=== PATIENT | female | born 1995 | race Caucasian/White ===

== ENCOUNTER 2020-06-15 13:04 | Emergency (ER) | payer OTHER ==
[~2020-06-15] VITALS: Ht 160 cm; Wt 65.5 kg
[2020-06-15 13:05] VITALS: BP 131/79
== END 2020-06-15 14:11 | disposition home or self-care (01) ==
LOC: M ED 13:04
DX: F41.9 Anxiety disorder, unspecified (principal); Z3A.15 15 weeks gestation of pregnancy

== ENCOUNTER → 2020-09-22 | Outpatient (REF) | payer OTHER ==
[2020-09-22 13:45] LABS: HEMATOCRIT 34.1 % (36.0-47.0); HEMOGLOBIN 10.9 g/dl (12.0-15.5); MEAN CORPUSCULAR HEMOGLOBIN 30.1 pg (27.0-33.0); MEAN CORPUSCULAR VOLUME 94.2 fl (80.0-96.0); PLATELET COUNT, AUTOMATED 239 10^3/uL (150-450); RED BLOOD COUNT 3.62 10^6/uL (4.00-5.40); WHITE BLOOD COUNT 11.1 10^3/uL (4.0-10.0)
[2020-09-22 14:14] LABS: GLUCOSE CHALLENGE TEST 1 HOUR 96 MG/DL (LESS THAN 140)
[2020-09-22 15:10] LABS: HEPATITIS C VIRUS ABY INDEX 0.1 INDEX (<0.8); HIV 1&2 SCREEN CENTAUR NEGATIVE (NEGATIVE)
[2020-09-22 15:38] LABS: CHLAMYDIA DNA AMPLIFICATION NEGATIVE (NEGATIVE); GC DNA AMPLIFICATION NEGATIVE (NEGATIVE)
== END ==
LOC: M PLALAB 10:27
PROVIDERS: ATTEND Obstetrics & Gynecology
DX: Z34.93 Encounter for supervision of normal pregnancy, unspecified, third trimester (principal); Z36.89 Encounter for other specified antenatal screening

== ENCOUNTER → 2020-10-06 | Outpatient (REF) | payer OTHER | LOC: M PLALAB 00:46 | PROVIDERS: ATTEND Obstetrics & Gynecology | DX: Z3A.31 31 weeks gestation of pregnancy (principal); Z53.9 Procedure and treatment not carried out, unspecified reason ==

== ENCOUNTER → 2020-10-08 | Outpatient (REF) | payer OTHER ==
[~2020-10-08] MED LIST: MULTTAB20 PO
== END ==
LOC: M SFHCWAGY 13:10
PROVIDERS: ATTEND Obstetrics & Gynecology
DX: Z34.93 Encounter for supervision of normal pregnancy, unspecified, third trimester (principal); Z3A.31 31 weeks gestation of pregnancy
CPT/HCPCS: 87086; G0463

== ENCOUNTER → 2020-11-04 | Outpatient (REF) | payer OTHER | LOC: M PLALAB 16:34 | PROVIDERS: ATTEND Obstetrics & Gynecology | DX: Z36.89 Encounter for other specified antenatal screening (principal); Z3A.36 36 weeks gestation of pregnancy ==

== ENCOUNTER 2020-11-05 08:57 | Outpatient (CLI) | payer OTHER ==
[~2020-11-05] VITALS: Ht 162.6 cm; Wt 81.5 kg
[2020-11-05 09:20] VITALS: BP 124/77
[2020-11-05] MEDS ORDERED: MULTTAB20 PO (09:23)
[2020-11-05 10:23] LABS: HEMATOCRIT 33.3 % (36.0-47.0); HEMOGLOBIN 10.9 g/dl (12.0-15.5); MEAN CORPUSCULAR HEMOGLOBIN 30.3 pg (27.0-33.0); MEAN CORPUSCULAR HGB CONC 32.7 g/dl (32.0-36.5); MEAN CORPUSCULAR VOLUME 92.5 fl (80.0-96.0); PLATELET COUNT, AUTOMATED 218 10^3/uL (150-450); WHITE BLOOD COUNT 10.8 10^3/uL (4.0-10.0)
[2020-11-05 10:52] LABS: CREATININE,RANDOM URINE 41.2 MG/DL; TOTAL PROTEIN,RANDOM URINE 13.3 MG/DL (0.0-12.0)
[2020-11-05 10:52] LABS: ALT/SGPT 14 U/L (12-78); BILIRUBIN,TOTAL 0.1 MG/DL (0.2-1.0); CREATININE FOR GFR 0.44 MG/DL (0.55-1.30); GLOMERULAR FILTRATION RATE > 60.0 (>60); LDH LACTATE DEHYDROGENASE 152 U/L (84-246); URIC ACID 2.4 MG/DL (2.6-6.0)
[2020-11-05 11:39] VITALS: BP 128/75
--- NOTE | 2020-11-05 12:20 | REP ---
INDICATION: RUQ pain. COMPARISON: None. TECHNIQUE: Standard right upper quadrant sonography performed. Patient is 35 weeks . Exam somewhat limited due to bowel gas. FINDINGS: Liver is homogeneous in echotexture without gross mass, intrahepatic biliary dilatation nor adjacent ascites. Gallbladder shows no abnormal wall thickening, stone or sludge. No pericholecystic fluid. Common duct is 2.4 mm without a common duct stone. There is no sonographic Ridley sign. Pancreas is completely obscured by gas shadowing. The right kidney is 12.3 x 5.6 x 5.7 cm. Some mild right hydronephrosis, most likely hydronephrosis of . No visible stone or shadowing from echogenic focus. No definite perinephric fluid. IMPRESSION: Negative evaluation of the liver, gallbladder and common bile duct. No stone, sludge, wall thickening or pericholecystic fluid. Common duct 2.4 mm and normal. Pancreas completely obscured. Mild hydronephrosis right kidney 12.3 x 5.6 x 5.7 cm, likely hydronephrosis of . Exam limited by gas shadowing and late 3rd trimester . There is a known atypical, uncommon presentation for preeclampsia manifested as right upper quadrant pain. This would be your clinical exclusion. <Electronically signed by Parish Lopez > 11/05/20 [id number]
[2020-11-05 12:39] LABS: APPEARANCE, URINE CLOUDY (CLEAR); BACTERIA, URINE AUTO 1+ (NEGATIVE); BILIRUBIN, URINE AUTO NEGATIVE (NEGATIVE); BLOOD, URINE BLOOD NEGATIVE (NEGATIVE); COLOR, URINE YELLOW (YELLOW); GLUCOSE, URINE (UA) AUTO 1+ mg/dL (NEGATIVE); KETONE, URINE AUTO NEGATIVE (NEGATIVE); LEUKOCYTE ESTERASE, URINE AUTO 3+ (NEGATIVE); NITRITE, URINE AUTO NEGATIVE (NEGATIVE); PROTEIN, URINE AUTO NEGATIVE (NEGATIVE); RBC, URINE AUTO 2 /HPF (0-3); SPECIFIC GRAVITY URINE AUTO 1.009 (1.002-1.035); SQUAMOUS EPITHELIAL CELL UR AU 14 /HPF (0-6); UROBILINOGEN, URINE AUTO 0.2 mg/dL (0.0-2.0); WBC, URINE AUTO 17 /HPF (0-3)
--- NOTE | 2020-11-05 12:56 | IPNPDOC ---
Text Note Date of Service The patient was seen on 11/05/20. NOTE outpatient 25yo G1 ISELA 12/04/2020. Presents at 35w6d with complaints of RUQ pain with deep inspiration. Pt reports " I have all the symptoms of HELLP that I saw on [employer]." Reports mild sporadic headache that resolves with Tylenol. Occasional nausea. NAD, appears comfortable resting in bed Normotensive Cat I tracing. PreE panel WNL except urine ratio 0.32 CBC WNL, plt 218 Liver sono shows only mild right hydronephrosis of UA 3+ leuk esterase. A: UTI Reviewed results with patient and partner, stressing normalcy of results Discussed treatment for UTI Discharged home. Has appt next week. VS,Fishbone, I+O VS, Fishbone, I+O Laboratory Tests 11/05/20 10:03 Vital Signs Date Time Temp Pulse Resp B/P (MAP) Pulse Ox O2 Delivery O2 Flow Rate FiO2 11/05/20 11:39 94 128/75 (92) 11/05/20 09:20 99.1 Bina Caldwell CNM Nov 05, 2020 12:56
[2020-11-05] MEDS ORDERED: NITROFURANTOIN (MACROBID) 100 MG CAP PO ONE (13:00)
== END 2020-11-05 13:15 | disposition home or self-care (01) ==
LOC: M LDO 08:57
PROVIDERS: ATTEND Advanced Practice Midwife
DX: O23.43 Unspecified infection of urinary tract in pregnancy, third trimester (principal); Z3A.35 35 weeks gestation of pregnancy; O26.893 Other specified pregnancy related conditions, third trimester; R10.11 Right upper quadrant pain
CPT/HCPCS: 36415; 59025; 76705; 81001; 82247; 82565; 82570; 83615; 84156; 84450; 84460; 84550; 85027; 87086; G0378; G0463

== ENCOUNTER → 2020-11-08 | Outpatient (REF) | payer OTHER | LOC: M SFHCWAGY 16:46 | PROVIDERS: ATTEND Obstetrics & Gynecology | DX: Z36.89 Encounter for other specified antenatal screening (principal); Z3A.36 36 weeks gestation of pregnancy | CPT/HCPCS: 87081; G0463 ==

== ENCOUNTER 2020-12-09 18:16 | Inpatient (IN) | payer OTHER ==
[~2020-12-09] VITALS: Ht 162.6 cm; Wt 88.1 kg
[2020-12-09] VITALS (14 sets, daily range): BP systolic 119–148; BP diastolic 70–101
[2020-12-09] MEDS ORDERED: ACET325C5 PO (18:30)
--- NOTE | 2020-12-09 19:06 | HPEPDOC ---
Obstetrical History & Physical General Date of Admission December 09, 2020 at 18:40 History of Present Illness 25 yo at 40 3/7 weeks by LMP c/w 7 week ultrasound (EDC=12/04/2020) presents with leakage of fluid per vagina starting at 5:30 pm on the day of admission. Contractions began shortly after that, but were mild. No bleeding, Chief Complaint: LOF, term Information Provided By: Patient Age: 25 : 1 Term: 0 Pre-term: 0 Abortions: 0 Livin Care Care: Good Care Dating Final EDC: December 04, 2020 Final EDC by: LMP, 1st trimester (US) Past Medical History Past Obstetrical History : Past Obstetrical History: Primgravida Past Medical History Medical History Med hx: non-contributory Surgical History: Denies/None Family History Significant Family History: No pertinent family hx Social History Marital Status: Single Family situation: Spouse/partner home Psychosocial History: No pertinent psych hx * Smoker: non-smoker Allergies Coded Allergies: No Known Allergies (Unverified , 11/05/20) Medications Scheduled Acetaminophen (Tylenol) 325 Mg Capsule, 325 MG PO Q6HP No122/Iron/Folic Acid ( Multi Tablet) 1 Each Tablet, 1 TAB PO DAILY Physical Examination Physical Examination GENERAL: Alert and oriented times three. BREAST: . ABDOMEN: Gravid and non-tender to touch. FETUS: Is vertex (VTX) by sterile vaginal examination (SVE), fetus is vertex (VTX) by Marcial. HEART RATE: Regular rate and rhythm. LUNGS: Clear to auscultation (CTA). EXTREMITIES: No edema. No clonus. Deep tendon reflexes (DTRs) + . Vital Signs/I&O Vital Signs Date Time Temp Pulse Resp B/P (MAP) Pulse Ox O2 Delivery O2 Flow Rate FiO2 12/09/20 18:43 105 18 128/79 (95) 12/09/20 18:27 99.3 Laboratory Data 24H [facility] Laboratory Tests 2 12/09/20 18:46: 12/09/20 18:47: Serology Scanned Report Hepatitis B Testing CBC/BMP Pertinent Laboratoy Data Blood Type: A+ Group B Streptococcus: Negative Vaginal Examination Dilation: 1cm Effacement: 50% Station: -2 Cervical Consistency: Medium Cervical Position: Posterior Presentation: Cephalic presentation Assessment Variability: Moderate Accelerations: Positive Decelerations: None Tocometer Contractions: Yes Frequency: irregular Duration: less than 60 seconds Strength: palpated as mild Assessment/Plan Assessment Pt is a 25-year-old (G)1 para (P)0 at 40+3 weeks by LMP c/w 7-week ultrasound presents to Labor and Delivery with spontaneous ROM, early labor. Plan Admit and orient. Ornament Stitcher and consent. Diet: reg. Group B Streptococcus (GBS) negative. Labs and intravenous (IV) per unit protocol. Anticipate [normal spontaneous delivery C-S as appropriate. WILLIAM SUMNER MD December 09, 2020 19:06
[2020-12-09 19:11] LABS: HEMATOCRIT 38.5 % (36.0-47.0); HEMOGLOBIN 12.5 g/dl (12.0-15.5); MEAN CORPUSCULAR HEMOGLOBIN 29.8 pg (27.0-33.0); MEAN CORPUSCULAR HGB CONC 32.5 g/dl (32.0-36.5); MEAN CORPUSCULAR VOLUME 91.9 fl (80.0-96.0); PLATELET COUNT, AUTOMATED 188 10^3/uL (150-450); RED BLOOD COUNT 4.19 10^6/uL (4.00-5.40); WHITE BLOOD COUNT 11.1 10^3/uL (4.0-10.0)
[2020-12-09] MEDS ORDERED: OXYTOCIN DRIP 30 UNITS in IV 1 EA IV SCH (20:00)
[2020-12-09] MEDS: LR 1,000 ML IV SCH (20:57)
[2020-12-09] MEDS ORDERED: LR 1,000 ML IV ONE (22:20)
[2020-12-09] MEDS ORDERED: FENTANYL 2MCG/ML ROPIVACAINE 0.2% IN 0.9% NACL 100ML IVBAG As Ordered ONE (23:08)
[2020-12-10] VITALS (32 sets, daily range): BP systolic 98–156; BP diastolic 51–93
[2020-12-10] MEDS ORDERED: LACTATED RINGER'S 1000 ML IV PRN (01:25)
[2020-12-10] MEDS ORDERED: ONDANSETRON 4MG/2ML VIAL IV PRN (01:25)
[2020-12-10] MEDS ORDERED: EPIDURAL COMMENT XX SCH (01:25)
[2020-12-10] MEDS ORDERED: EPIDURAL/PCA KEYS XX PRN (01:25)
[2020-12-10] MEDS ORDERED: ePHEDrine SULFATE 25 MG/5 ML(5MG/ML) SYRINGE IV PRN (01:25)
[2020-12-10] MEDS ORDERED: NALOXONE INJ 0.4MG/1ML VIAL (J2310 PER 1MG) IV PRN (01:25)
[2020-12-10] MEDS ORDERED: diphenhydrAMINE 50MG/ML VIAL (J1200) IV PRN (01:25)
[2020-12-10] MEDS ORDERED: REFRIGERATOR IV KEYS XX PRN (01:25)
[2020-12-10] MEDS: FENTANYL/ROPIVACAINE/NACL BAG 100 ML EPIDURAL SCH ×2 (04:08→08:48)
[2020-12-10] MEDS: LR 1,000 ML IV SCH ×2 (05:17→13:27)
--- NOTE | 2020-12-10 08:10 | IPNPDOC ---
Text Note Date of Service The patient was seen on 12/10/20. NOTE Progress Reports shaking and pressure. UC 2-4 minutes x 45-60 seconds FH 135, Cat I SVE 5-6/80/-2, fluid remains clear, light show Continue Pitocin IOL Will update physician Di SAENZ, I+O VS, Di, I+O Laboratory Tests 12/09/20 18:46 Vital Signs Date Time Temp Pulse Resp B/P (MAP) Pulse Ox O2 Delivery O2 Flow Rate FiO2 12/10/20 07:08 98.2 84 16 108/59 (75) I&O- Last 24 Hours up to 6 AM 12/10/20 05:59 Intake Total 2315 ml Output Total 1325 ml Balance 990 ml Bina Caldwell CNM December 10, 2020 08:10
[2020-12-10] MEDS ORDERED: ACETAMINOPHEN 500 MG TAB PO PRN (11:10)
[2020-12-10 15:10] LABS: CORD GAS ABE V -7.8; CORD GAS HCO3 A 21.9 MEQ/L; CORD GAS HCO3 V 19.1 MEQ/L; CORD GAS O2 SAT A < 15.0 %; CORD GAS O2 SAT V 81.7 %; CORD GAS PCO2 A 80.5 mmHg; CORD GAS PCO2 V 43.8 mmHg; CORD GAS PH A 7.053 UNITS; CORD GAS PH V 7.257 UNITS; CORD GAS PO2 A < 10.0 mmHg; CORD GAS PO2 V 44.4 mmHg; CORD GAS SBC V 17.9 MEQ/L; CORD GAS TCO2 A 24.4 MEQ/L; CORD GAS TCO2 V 20.4 MEQ/L
[2020-12-10] MEDS ORDERED: METHYLERGONOVINE MALEATE 0.2 MG TAB PO PRN (15:30)
[2020-12-10] MEDS ORDERED: OXYTOCIN DRIP 30 UNITS in IV 1 EA IV SCH (15:30)
[2020-12-10] MEDS ORDERED: MEASLES,MUMPS,RUBELLA VACCINE INJ (MMR-II) (90707) SC SCH (15:30)
[2020-12-10] MEDS ORDERED: MOM 30ML SUSPENSION UDC PO PRN (15:30)
[2020-12-10] MEDS ORDERED: IBUPROFEN 600MG TAB PO PRN (15:30)
[2020-12-10] MEDS ORDERED: RHOGAM 300 MCG (1500 IU) INJ (J2790) IM SCH (15:30)
[2020-12-10] MEDS ORDERED: ANUSOL HC CREAM 30GM TOP PRN (15:30)
[2020-12-10] MEDS ORDERED: DIBUCAINE 1% OINTMENT 30GM TOP PRN (15:30)
[2020-12-10] MEDS ORDERED: DOCUSATE SODIUM 100MG CAPSULE PO PRN (15:30)
[2020-12-10] MEDS ORDERED: ACETAMINOPHEN TAB 650MG DOSE (2X325MG) PO PRN (15:30)
--- NOTE | 2020-12-10 15:35 | IPNPDOC ---
Text Note Date of Service The patient was seen on 12/10/20. NOTE Progress Please see delivery note by Di Buenrostro, I+O Di SAENZ I+O Laboratory Tests 12/09/20 18:46 Vital Signs Date Time Temp Pulse Resp B/P (MAP) Pulse Ox O2 Delivery O2 Flow Rate FiO2 12/10/20 11:37 100 17 111/68 (82) 12/10/20 11:24 100.1 I&O- Last 24 Hours up to 6 AM 12/10/20 06:00 Intake Total 2315 ml Output Total 1325 ml Balance 990 ml Bina Caldwell CNM December 10, 2020 15:35
[2020-12-10] MEDS ORDERED: METHYLERGONOVINE MALEATE 0.2 MG/ML VIAL (J2210) IM STA (16:36)
[2020-12-10] MEDS ORDERED: BUTORPHANOL 2 MG/ML INJ (J0595) IV ONE (17:30)
[2020-12-10] MEDS: IBUPROFEN 800 MG TAB PO PRN ×2 (17:50→19:31)
[2020-12-10] MEDS: PERCOCET 5MG/325MG TAB PO PRN (20:30)
[2020-12-10] MEDS: METHYLERGONOVINE MALEATE 0.2 MG TAB PO SCH (22:34)
[2020-12-11 02:00] VITALS: BP 130/79
[2020-12-11] MEDS: PERCOCET 5MG/325MG TAB PO PRN ×3 (02:07→15:40)
[2020-12-11] MEDS: IBUPROFEN 800 MG TAB PO PRN ×2 (04:42→13:03)
[2020-12-11] MEDS: METHYLERGONOVINE MALEATE 0.2 MG TAB PO SCH ×3 (04:42→16:33)
[2020-12-11 06:00] VITALS: BP 130/86
--- NOTE | 2020-12-11 07:26 | IPNPDOC ---
Text Note Date of Service The patient was seen on 12/11/20. NOTE PP #1 Reports adequate pain management. Lord remains in place. Reports word from [place] is is stable and meeting goals VSS, afebrile, normotensive Breasts soft Fundus firm, NT, down 1 FB Lochia rubra light without odor Perineum well approximated PP #1, post shoulder dystocia Routine care. Consider discharge this after noon if desires VS,Fishbone, I+O VS, Fishbone, I+O Vital Signs Date Time Temp Pulse Resp B/P (MAP) Pulse Ox O2 Delivery O2 Flow Rate FiO2 12/11/20 06:00 98.0 82 16 130/86 (101) 98 Room Air I&O- Last 24 Hours up to 6 AM 12/11/20 06:00 Intake Total 4253 ml Output Total 6351 ml Balance -2098 ml Bina Caldwell CNM December 11, 2020 07:26
--- NOTE | 2020-12-11 07:58 | IPNPDOC ---
Text Note Date of Service The patient was seen on 12/11/20. NOTE Late entry for 12/10/2020 Fully dilated 1254. Pt described feeling an urge to push. Commenced pushing with coaching and support from staff. heart status remained reassuring Patient required coaching and reinforcement for effective pushing efforts. Increased caput and slow . Required continued reinforcement for effective pushing. heart remained reassuring. Extra nursing support requested due to slow with suspicion of dystocia. MacRoberts and suprapubic pressure provided. 1446 - requested assistance from Dr Zhou [address] Anguiano in building, requested to assist Downward traction on head failed to deliver the anterior shoulder. Nuchal cord reduced, pulsations noted Attempted to sweep posterior shoulder unsuccessful. Patient flipped to all 4's. Poor pushing efforts noted on all 4's, returned to supine upon Dr Anguiano's arrival in room 1451. Cord pulsations continued. Please see Dr Anguiano's delivery note. VS,Fishbone, I+O VS, Fishbone, I+O Vital Signs Date Time Temp Pulse Resp B/P (MAP) Pulse Ox O2 Delivery O2 Flow Rate FiO2 12/11/20 06:00 98.0 82 16 130/86 (101) 98 Room Air I&O- Last 24 Hours up to 6 AM 12/11/20 06:00 Intake Total 4253 ml Output Total 6351 ml Balance -2098 ml Bina Caldwell CNM December 11, 2020 07:58
[2020-12-11 10:00] VITALS: BP 131/81
[2020-12-11] MEDS: PRENATAL VITAMINS CHEWABLE TABLET PO SCH (10:30)
[2020-12-11 14:00] VITALS: BP 133/94
[2020-12-11 18:00] VITALS: BP 135/78
[2020-12-11 22:00] VITALS: BP 127/82
[2020-12-11] MEDS ORDERED: METHYLERGONOVINE MALEATE 0.2 MG TAB PO PRN (22:40)
[2020-12-12] MEDS: PERCOCET 5MG/325MG TAB PO PRN (00:09)
[2020-12-12 02:00] VITALS: BP 121/63
[2020-12-12] MEDS: IBUPROFEN 800 MG TAB PO PRN (03:16)
[2020-12-12 05:52] VITALS: BP 177/69
[2020-12-12 07:17] LABS: HEMATOCRIT 28.9 % (36.0-47.0); HEMOGLOBIN 9.3 g/dl (12.0-15.5); MEAN CORPUSCULAR HEMOGLOBIN 29.8 pg (27.0-33.0); MEAN CORPUSCULAR HGB CONC 32.2 g/dl (32.0-36.5); MEAN CORPUSCULAR VOLUME 92.6 fl (80.0-96.0); PLATELET COUNT, AUTOMATED 161 10^3/uL (150-450); RED BLOOD COUNT 3.12 10^6/uL (4.00-5.40); WHITE BLOOD COUNT 15.1 10^3/uL (4.0-10.0)
[2020-12-12] MEDS: PRENATAL VITAMINS CHEWABLE TABLET PO SCH (08:15)
[2020-12-12] MEDS ORDERED: IBUP80TA PO (08:19)
[2020-12-12] MEDS ORDERED: PERCOCET PO (08:19)
[2020-12-12 09:49] VITALS: BP 124/81
--- NOTE | 2020-12-12 19:05 | DN ---
DELIVERY NOTE DATE OF DELIVERY: 12/10/2020 I was called to labor and delivery (L and D) by the nurse at 1430 hours, needing a doctor for a patient with a history of a 6-minute shoulder dystocia. Arriving to the room for and reviewed the situation. All available staff was present for the delivery. Upon assessment, the patient was in the left lateral position. The head was delivered, not flush to the perineum, but there was good blood flow to the cheeks and to the scalp and to the face, and the cord was partially delivered and was pulsatile and still firm. The episiotomy midline had already been done. Had the patient stop pushing and repositioned the patient. No time and was unable to place a Lord catheter in, as the shoulder had been impacted in the pubic area. The bed was optimized for delivery. We then had the patient push, attempting a Jose Alberto maneuver trying to dislodge the anterior shoulder. Unable to dislodge the anterior shoulder, attempted to deliver the posterior arm. Was unable to reach or sweep the arm, therefore did Briones maneuver with axial traction and hook the posterior shoulder, which came free, and then we were able to deliver the posterior arm by sweeping it. Subsequently sent back to the Jose Alberto maneuver with suprapubic pressure and obliquae pushing. Dislodged the anterior shoulder, delivered a baby girl, handed it off to Dr. Vaughn. Arterial pH was 7.05, base excess -10, venous pH 7.25, base excess -7.8. scores at one minute were 0, five minutes were 1, 10 minutes were 3, 15 minutes were 6, and 20 minutes were 2. Weight was 4214 grams, 9 pounds 5 ounces. Placenta delivered spontaneously after. Uterus a bit atonic and the patient was given Cytotec 1000 mg per rectum. Intravenous (IV) Pitocin was initiated and a Methergine series was commenced. Examination of the vagina showed that the cervix was intact. The midline episiotomy had extended to the left sidewall up to the fornix, and on the right side there was a labial to mid vaginal tear. The sphincter was intact. The muscle was complete. The capsule was a bit stretched, but basically it was an extension of the midline episiotomy. The repair was performed with direct vision and assistance with the batter scaler. Repair was 2-0 Vicryl on the J339. Once that was complete, we reviewed the vagina again. There was no evidence of active bleeding. Digital examination of the rectum appeared intact. Sphincter was tight, and the uterus was melani well down under Pitocin and the Methergine as well as the Cytotec. Patient and baby tolerating procedure well. A Lord catheter was placed after delivery of the baby, and good clear urine was initiated.
== END 2020-12-12 11:00 | disposition home or self-care (01) | DRG 807 ==
LOC: M LDO 18:16 → M LDI 18:40 → M OBS 12-10 20:46
PROVIDERS: ADMIT Specialist; ATTEND Obstetrics & Gynecology
PROC: 10E0XZZ Delivery of Products of Conception, External Approach (ICD-10-PCS; principal; 2020-12-10)
PROC: 0KQM0ZZ Repair Perineum Muscle, Open Approach (ICD-10-PCS; 2020-12-10)
DX: O42.02 Full-term premature rupture of membranes, onset of labor within 24 hours of rupture (principal); Z37.0 Single live birth; O48.0 Post-term pregnancy; Z3A.40 40 weeks gestation of pregnancy; O66.0 Obstructed labor due to shoulder dystocia; O70.1 Second degree perineal laceration during delivery; O75.89 Other specified complications of labor and delivery

== ENCOUNTER 2021-04-22 21:03 | Emergency (ER) | payer OTHER ==
[~2021-04-22] VITALS: Ht 162.6 cm; Wt 72.6 kg
[~2021-04-22 21:03] MED LIST changes: +ACET325C5 PO; +IBUP80TA PO; +PERCOCET PO
[2021-04-23 01:55] VITALS: BP 123/79
== END 2021-04-23 02:08 | disposition left against medical advice (07) ==
LOC: M ED 21:03
DX: Z53.9 Procedure and treatment not carried out, unspecified reason (principal)

== ENCOUNTER → 2022-11-13 | Outpatient (REF) | LOC: M EMP 08:03 | PROVIDERS: ATTEND Family Medicine | DX: Z20.822 Contact with and (suspected) exposure to COVID-19 (principal) ==

== ENCOUNTER → 2022-11-20 | Outpatient (REF) | LOC: M EMP 14:58 | PROVIDERS: ATTEND Family Medicine | DX: Z11.52 Encounter for screening for COVID-19 (principal) ==

== ENCOUNTER → 2022-11-28 | Outpatient (REF) | LOC: M EMP 08:44 | PROVIDERS: ATTEND Family Medicine | DX: Z11.52 Encounter for screening for COVID-19 (principal) ==

== ENCOUNTER → 2022-12-05 | Outpatient (REF) | LOC: M EMP 08:39 | PROVIDERS: ATTEND Family Medicine | DX: Z11.52 Encounter for screening for COVID-19 (principal) ==

== ENCOUNTER → 2022-12-12 | Outpatient (REF) | LOC: M EMP 08:10 | PROVIDERS: ATTEND Family Medicine | DX: Z11.52 Encounter for screening for COVID-19 (principal) ==

== ENCOUNTER → 2022-12-19 | Outpatient (REF) | LOC: M EMP 09:24 | PROVIDERS: ATTEND Family Medicine | DX: Z11.52 Encounter for screening for COVID-19 (principal) ==

== ENCOUNTER → 2022-12-20 | Outpatient (REF) | LOC: M EMP 11:02 | PROVIDERS: ATTEND Family Medicine | DX: Z20.822 Contact with and (suspected) exposure to COVID-19 (principal) ==

== ENCOUNTER → 2022-12-26 | Outpatient (REF) | LOC: M EMP 08:03 | PROVIDERS: ATTEND Family Medicine | DX: Z11.52 Encounter for screening for COVID-19 (principal) ==

== ENCOUNTER → 2023-01-02 | Outpatient (REF) | LOC: M EMP 10:27 | PROVIDERS: ATTEND Family Medicine | DX: Z11.52 Encounter for screening for COVID-19 (principal) ==

== ENCOUNTER → 2023-01-03 | Outpatient (REF) | LOC: M EMP 12:00 | PROVIDERS: ATTEND Family Medicine | DX: Z11.52 Encounter for screening for COVID-19 (principal) ==